=== PATIENT | male | born 1955 | race Caucasian/White ===

== ENCOUNTER 2021-11-23 09:32 | Outpatient (REF) | payer BC, SELFPAY ==
[2021-11-23 09:48] LABS: MANUAL DIFF FLAG NO
[2021-11-23 09:57] LABS: Basophils Absolute Auto 0.1 X10*3/uL (0.0-0.2); Basophils Percent Auto 0.8 % (0-2); Eosinophils Absolute Auto 0.1 X10*3/uL (0.0-0.4); Eosinophils Percent Auto 1.9 % (0-4); Hematocrit 48.2 % (42.0-52.0); Hemoglobin 16.7 g/dl (14.0-18.0); Imm Gran Abs Auto 0.01 X10*3/uL (0.00-0.03); Imm Gran Pct Auto 0.2 % (0.0-0.4); Lymphocytes Absolute Auto 1.7 X10*3/uL (1.2-4.9); Lymphocytes Percent Auto 27.1 % (20-40); Mean Corpuscular HGB Conc 34.6 g/dl (31.0-36.0); Mean Corpuscular Hemoglobin 32.5 pg (27.0-33.0); Mean Corpuscular Volume 93.8 fL (80.0-98.0); Mean Platelet Volume 9.4 fL (9.4-12.4); Monocytes Absolute Auto 0.6 X10*3/uL (0.1-1.2); Neutrophils Absolute Auto 3.7 x10*3/uL (2.0-8.3); Platelet Count 292 X10*3/uL (160-400); Red Blood Count 5.14 X10*6/uL (4.60-5.80); White Blood Count 6.2 X10*3/uL (4.8-10.8)
[2021-11-23 10:31] LABS: Anion Gap 9 (12-20); Blood Urea Nitrogen 13 mg/dL (9-16); Calcium 9.7 mg/dL (8.4-10.2); Carbon Dioxide 29 mmol/L (22-29); Chloride 108 mmol/L (96-108); Cholesterol 194 mg/dL; Estimated Glomerular Filt Rate > 60; Glucose Fasting 102 mg/dL (60-99); HDL Cholesterol 32 mg/dL; LDL Cholesterol Calculated 136 mg/dl; Potassium 4.7 mmol/L (3.3-5.1); Sodium 141 mmol/L (135-145); Triglycerides 132 mg/dL
[2021-11-23 10:42] LABS: Prostate Specific Antigen Scr 0.31 ng/mL (<0.05-4.0)
== END 2021-11-23 09:33 | disposition home or self-care (01) ==
LOC: HO.LAB 09:32
PROVIDERS: PCP Nurse Practitioner Family; Visit Provider Nurse Practitioner Family
DX: Z12.5 Encounter for screening for malignant neoplasm of prostate (principal); E55.9 Vitamin D deficiency, unspecified; Z76.89 Persons encountering health services in other specified circumstances
CPT/HCPCS: 36415; 80048; 80061; 82306; 84153; 85025

== ENCOUNTER 2022-01-11 08:48 | Day surgery (SDC) | payer BC, SELFPAY ==
[2022-01-01 13:19] VITALS: BMI 32.2
--- NOTE | 2022-01-07 12:48 | MHC.SHP ---
Pre-Procedural Eval Section A Date of Service: 01/07/22 The patient is an INPATIENT: No Changes since office visit: No Cold of Flu in the past 2 weeks, No New Medical Problems, No Changes in Medication and No Patient answered all questions The History & Physical has been completed within 30 days and I have reviewed it.: Yes Section B Chief Complaint: cataract Allergies: Allergies Allergy/AdvReac Type Severity Reaction Status Date / Time latex Allergy Intermediate Rash Verified 01/01/22 13:21 Plan Diagnosis/Plan: Unchanged I have reviewed the history and physical and performed a pertinent physical examination on my patient. No changes have occurred unless specified.
--- NOTE | 2022-01-07 13:47 | HO.ANESPROP2 ---
Documented by User: Cintia Fields NP 01/07/22 13:47 HPI - Anesthesia Eval Consult details Narrative: 66yo M for Left Cataract Extraction IOL Insertion PCP cleared No previous cataract on record PMFSH Active Problems Active Problems: All Active Problems (Updated 01/01/22 @ 13:17 by Lillian Santiago RN) Ingrowing nail with infection (Acute) Encounter to establish care (Acute ~11/16/21) Vitamin D deficiency (Acute) Hypercholesterolemia (Acute) Erectile dysfunction (Acute) Preoperative clearance (Acute) Cataract (Acute) Obesity (BMI 30.0-34.9) (Acute) Past Medical History Medical History COVID-19 vaccine series completed Patient denies medical problems Surgical History Surgical History H/O colonoscopy History of knee surgery Social History Social History (Updated 01/01/22 @ 13:18 by Lillian Santiago RN) Household Members Other:: [facility] Are you a primary medicare interviewer to a significant other at home: No Do you presently have visiting nurse or other home services: No Alcohol intake: current Alcohol intake frequency: 0-2 drinks per day Alcohol type: beer and wine Patient Tobacco Use Status: Former Tobacco user Quit Date: Tobacco use type: Cigarette e-Cigarette/Vaping Use: Never Used Second Hand Smoke Exposure: No Use of substances other than those prescribed or required for medical reasons: No Have you been hit, kicked, punched, or otherwise hurt by someone within the past year? 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 Cognitive needs: No Hearing needs: No Vision needs: Yes (Glasses) Meds Allergies Allergy/AdvReac Type Severity Reaction Status Date / Time latex Allergy Intermediate Rash Verified 01/11/22 09:21 Exam Exam Date and Time: January 07, 2022 1347 Height,Weight and Vital Signs: Height 5 ft 8 in Weight 96.162 kg Assessment and Plan Assessment Anesthesia Assessment: Chart Reviewed Documented by User: Ana Canela MD 01/11/22 09:32 [facility] Past Medical History Medical History COVID-19 vaccine series completed Patient denies medical problems Family History Family history of problems with anesthesia: No Surgical History Surgical History H/O colonoscopy History of knee surgery History of Problems with Anesthesia: No Social History Social History (Updated 01/01/22 @ 13:18 by Lillian Santiago RN) Household Members Other:: son Housing: [facility] Are you a primary medicare interviewer to a significant other at home: No Do you presently have visiting nurse or other home services: No Alcohol intake: current Alcohol intake frequency: 0-2 drinks per day Alcohol type: beer and wine Patient Tobacco Use Status: Former Tobacco user Quit Date: Tobacco use type: Cigarette e-Cigarette/Vaping Use: Never Used Second Hand Smoke Exposure: No Use of substances other than those prescribed or required for medical reasons: No Have you been hit, kicked, punched, or otherwise hurt by someone within the past year? 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 Cognitive needs: No Hearing needs: No Vision needs: Yes (Glasses) Meds Allergies Allergy/AdvReac Type Severity Reaction Status Date / Time latex Allergy Intermediate Rash Verified 01/11/22 09:21 Exam Airway Mallampati Class: II (Cap lateral) TM Dist: >3cm Neck ROM: Full Heart: rrr Lungs: cta Assessment and Plan Assessment Anesthesia Assessment: Anesthesia Plan Discussed and Chart Reviewed Final Anesthetic Review Family History of Problems with Anesthesia: No History of Problems with Anesthesia: No NPO: Yes ASA Class: II Final Preanesthetic Review: No Changes in Pt Med Stat, Meds/Allgs Chart Reviewed and Consent Obtained/Reviewed Patient Risk: Intermediate Procedure Risk: Intermediate Anesthetic Plan Anesthetic Plan: MAC: Disposition: Standard PACU
[2022-01-11 09:22] VITALS: BP 148/99; PULSE 75; RESP 16; TEMP 36.8; O2SAT 96
[2022-01-11] MEDS: Tetracaine HCl/PF 0.5% Oph Sol 4 ML DROPS 1 DROP EYE-LEFT (09:24)
[2022-01-11] MEDS: Tropicamide 1 % Ophth Sol 3 ML BTL 1 DROP EYE-LEFT ×3 (09:27→09:41)
[2022-01-11] MEDS: Lactated Ringers 500 ML 50 ML IV (09:29)
[2022-01-11] MEDS: Phenylephrine HCL 2.5% Oph SoL 2 ML BOTTLE 1 DROP EYE-LEFT ×3 (09:33→09:44)
--- NOTE | 2022-01-11 10:33 | HO.PNOPHT ---
Ophthalmology Procedure Procedure Date of Service: 01/11/22 Ophthalmology Viscoelastic: Healra Wisemant Dual Pack Pro Ophthalmology Lenses: TECNIS [id number] (14.5) Procedure Notes: PREOPERATIVE DIAGNOSIS: Decreased visual acuity left eye secondary to cataract POSTOPERATIVE DIAGNOSIS: Same PROCEDURE: Left cataract extraction with intraocular lens insertion SURGEON: Rodger Thornton M.D. ANESTHESIA: Topical/MAC ESTIMATED BLOOD LOSS: None COMPLICATIONS: None After obtaining informed consent, the patient was brought to the operation room suite and placed in the supine position. After adequate sedation per anesthesia, topical drops of Tetracaine were given to the left eye. The eye was then prepped and draped in the usual sterile fashion. The operating room microscope was then positioned over the operative eye and a lid speculum placed. A paracentesis was created. Viscoelastic was then instilled into the anterior chamber. A three plane incision was then created temporally, utilizing a 2.85 mm keratome. Capsulotomy forceps were then utilized to create a circular tear capsulotomy. Hydrodissection and hydrodelineation were carried out until adequate mobilization of the nucleus occurred. Phacoemulsification was then utilized to remove the dense central nucleus followed by removal of the cortical material utilizing the automated aspiration irrigation unit. Viscoat elastic was instilled into the posterior capsular bag followed by placement of a posterior chamber intraocular lens without difficulty. The residual Viscoat elastic was then removed utilizing the automated IA machine. The wound was check and found to be watertight. The patient tolerated the procedure well and the lid speculum was removed. Intracameral injection of Vigamox 0.1 mL followed by a subtenon injection of Kenalog-40 0.2 mL were administered. The patient will be seen in the a.m.
[2022-01-11 10:55] VITALS: BP 128/85; PULSE 71; RESP 16; TEMP 36.8; O2SAT 96
== END 2022-01-11 11:09 | disposition home or self-care (01) ==
PROVIDERS: PCP Nurse Practitioner Family; Visit Provider Ophthalmology
PROC: (CPT 66985; principal; 2022-01-11 10:50)
DX: H25.12 Age-related nuclear cataract, left eye (principal); H54.7 Unspecified visual loss; E66.9 Obesity, unspecified; Z68.32 Body mass index [BMI] 32.0-32.9, adult; Z79.899 Other long term (current) drug therapy; Z91.040 Latex allergy status; Z87.891 Personal history of nicotine dependence
CPT/HCPCS: 66984; J2250; J3010; J3300; V2632

== ENCOUNTER 2022-01-25 06:17 | Day surgery (SDC) | payer BC, SELFPAY ==
[2022-01-01 13:22] VITALS: BMI 32.2
--- NOTE | 2022-01-21 12:41 | MHC.SHP ---
Pre-Procedural Eval Section A Date of Service: 01/21/22 The patient is an INPATIENT: No Changes since office visit: No Cold of Flu in the past 2 weeks, No New Medical Problems, No Changes in Medication and No Patient answered all questions The History & Physical has been completed within 30 days and I have reviewed it.: Yes Section B Chief Complaint: cataract Allergies: Allergies Allergy/AdvReac Type Severity Reaction Status Date / Time latex Allergy Intermediate Rash Verified 01/11/22 09:21 Plan Diagnosis/Plan: Unchanged I have reviewed the history and physical and performed a pertinent physical examination on my patient. No changes have occurred unless specified.
--- NOTE | 2022-01-22 08:56 | P.CONAN_ITS ---
Documented by User: Cintia Fields NP 01/22/22 08:58 HPI - Anesthesia Eval Consult details Narrative: 66yo M for Right Cataract Multifocal with IOL Insertion PCP cleared Left eye 01/11/22 with MAC: Fent 50, Midaz 2 PMFSH Active Problems Active Problems: All Active Problems (Updated 01/01/22 @ 13:17 by Lillian Santiago RN) Ingrowing nail with infection (Acute) Encounter to establish care (Acute ~11/16/21) Vitamin D deficiency (Acute) Hypercholesterolemia (Acute) Erectile dysfunction (Acute) Preoperative clearance (Acute) Cataract (Acute) Obesity (BMI 30.0-34.9) (Acute) Past Medical History Medical History COVID-19 vaccine series completed Patient denies medical problems Family History Family history of problems with anesthesia: No Surgical History Surgical History H/O colonoscopy History of knee surgery History of Problems with Anesthesia: No Social History Social History (Updated 01/01/22 @ 13:18 by Lillian Santiago RN) Household Members Other:: [facility] Are you a primary acute care registered nurse to a significant other at home: No Do you presently have visiting nurse or other home services: No Alcohol intake: current Alcohol intake frequency: 0-2 drinks per day Alcohol t ype: beer and wine Patient Tobacco Use Status: Former Tobacco user Quit Date: Tobacco use type: Cigarette e-Cigarette/Vaping Use: Never Used Second Hand Smoke Exposure: No Use of substances other than those prescribed or required for medical reasons: No Have you been hit, kicked, punched, or otherwise hurt by someone within the past year? 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 Cognitive needs: No Hearing needs: No Vision needs: Yes (Glasses) Meds Allergies Allergy/AdvReac Type Severity Reaction Status Date / Time latex Allergy Intermediate Rash Verified 01/11/22 09:21 Exam Exam Date and Time: January 22, 2022 0856 Height,Weight and Vital Signs: Height 5 ft 8 in Weight 96.162 kg Assessment and Plan Assessment Anesthesia Assessment: Chart Reviewed Final Anesthetic Review Family History of Problems with Anesthesia: No History of Problems with Anesthesia: No Documented by User: Jacinto Graves MD 01/25/22 07:21 [facility] Past Medical History Medical History COVID-19 vaccine series completed Patient denies medical problems Surgical History Surgical History H/O colonoscopy History of knee surgery Social History Social History (Updated 01/01/22 @ 13:18 by Lillian Santiago RN) Household Members Other:: son Housing: Condominium Are you a primary acute care registered nurse to a significant other at home: No Do you presently have visiting nurse or other home services: No Alcohol intake: current Alcohol intake frequency: 0-2 drinks per day Alcohol type: beer and wine Patient Tobacco Use Status: Former Tobacco user Quit Date: Tobacco use type: Cigarette e-Cigarette/Vaping Use: Never Used Second Hand Smoke Exposure: No Use of substances other than those prescribed or required for medical reasons: No Have you been hit, kicked, punched, or otherwise hurt by someone within the past year? 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 Cognitive needs: No Hearing needs: No Vision needs: Yes (Glasses) Meds Allergies Allergy/AdvReac Type Severity Reaction Status Date / Time latex Allergy Intermediate Rash Verified 01/11/22 09:21 Exam Airway Mallampati Class: II TM Dist: >3cm Neck ROM: Full Loose/Missing/Broken Teeth: No Heart: rrr+[id number] Lungs: cta b/l Assessment and Plan Assessment Anesthesia Assessment: Anesthesia Plan Discussed Final Anesthetic Review NPO: Yes ASA Class: III Final Preanesthetic Review: No Changes in Pt Med Stat, Meds/Allgs Chart Reviewed, Consent Obtained/Reviewed and Anes Risks/Benef Reviewed Patient Risk: Intermediate Procedure Risk: Low Assessment/Block/Sedation in SS: Assess/Block/Sedation-SS Anesthetic Plan Anesthetic Plan: MAC: and Agree w/ Assess. and Plan Disposition: Standard PACU
[2022-01-25 06:56] VITALS: BP 126/81; PULSE 71; RESP 18; TEMP 36.6; O2SAT 96
[2022-01-25] MEDS: Lactated Ringers 500 ML 50 ML IV (07:02)
[2022-01-25] MEDS: Tetracaine HCl/PF 0.5% Oph Sol 4 ML DROPS 1 DROP EYE-RIGHT (07:03)
[2022-01-25] MEDS: Tropicamide 1 % Ophth Sol 3 ML BTL 1 DROP EYE-RIGHT ×3 (07:03→07:11)
[2022-01-25] MEDS: Phenylephrine HCL 2.5% Oph SoL 2 ML BOTTLE 1 DROP EYE-RIGHT ×3 (07:04→07:11)
--- NOTE | 2022-01-25 08:50 | HO.PNOPHT ---
Ophthalmology Procedure Procedure Date of Service: 01/25/22 Ophthalmology Viscoelastic: Healra Duet Dual Pack Pro Ophthalmology Lenses: TECNIS [id number] (14.5) Procedure Notes: PREOPERATIVE DIAGNOSIS: Decreased visual acuity right eye secondary to cataract POSTOPERATIVE DIAGNOSIS: Same PROCEDURE: Right cataract extraction with intraocular lens insertion SURGEON: Rodger Thornton M.D. ANESTHESIA: Topical/MAC ESTIMATED BLOOD LOSS: None COMPLICATIONS: None After obtaining informed consent, the patient was brought to the operating room suite and placed in the supine position. After adequate sedation per anesthesia, topical drops of Tetracaine were given to the right eye. The eye was then prepped and draped in the usual sterile fashion. The operating room microscope was then positioned over the operative eye and a lid speculum placed. A paracentesis was created. Viscoelastic was then instilled into the anterior chamber. A three plane incision was then created temporally, utilizing a 2.85 mm keratome. Capsulotomy forceps were then utilized to create a circular tear capsulotomy. Hydrodissection and hydrodelineation were carried out until adequate mobilization of the nucleus occurred. Phacoemulsification was then utilized to remove the dense central nucleus followed by removal of the cortical material utilizing the automated aspiration irrigation unit. Viscoelastic was instilled into the posterior capsular bag followed by placement of a posterior chamber intraocular lens without difficulty. The residual Viscoelastic was then removed utilizing the automated IA machine. The wound was checked and found to be watertight. The patient tolerated the procedure well and the lid speculum was removed. Intracameral injection of Vigamox 0.1 mL followed by a subtenon injection of Kenalog-40 0.2 mL were administered. The patient will be seen in the a.m.
[2022-01-25 09:19] VITALS: BP 137/96; PULSE 75; RESP 16; TEMP 36.2; O2SAT 97
== END 2022-01-25 09:21 | disposition home or self-care (01) ==
PROVIDERS: PCP Nurse Practitioner Family; Visit Provider Ophthalmology
PROC: (CPT 66985; principal; 2022-01-25 09:00)
DX: H25.11 Age-related nuclear cataract, right eye (principal); H54.7 Unspecified visual loss; Z91.040 Latex allergy status; Z87.891 Personal history of nicotine dependence
CPT/HCPCS: 66984; J2250; J3300; V2632

== ENCOUNTER 2023-07-11 12:16 | Outpatient (AMB) | payer BC, SELFPAY ==
[2023-07-11 12:32] VITALS: BP 130/82; PULSE 73; O2SAT 97; BMI 30.6
--- NOTE | 2023-07-11 12:32 | A.OFFPC_ITS ---
Vital Signs 07/11/23 12:32 Height 5 ft 8 in Weight 91.172 kg BMI 30.6 BP 130/82 Blood Pressure Location Lt brachial Position Sitting Pulse 73 Pulse Source Pulse Oximeter Pulse Oximetry (%) 97 Oxygen Delivery Method Room Air Intake Visit Reasons: PHY Allergies latex Allergy (Intermediate, Verified 07/11/23 12:33) Rash Penicillins Adverse Reaction (Intermediate, Verified 07/11/23 12:33) Rash Medication List - Last Reconciled 07/11/23 by Zack Allison MD cholecalciferol (vitamin D3) 50 mcg PO DAILY multivitamin 1 tab PO DAILY Tobacco use date assessed: 07/11/23 Fall risk assessment: No Falls in past year Last assessed Fall Risk: 07/11/23 Dental Screening Dental Screen Date: 07/11/23 Did you have a dental visit in the last 12 months?: Yes Did you have a dental problem in the last 6 months where you did not have access to dental care?: No Was dental information given to patient?: Patient has dentist HPI GEORGE HPI Details 68-year-old obese male with hypercholesterolemia, impaired glucose tolerance vitamin-D deficiency and right inguinal hernia last seen in September 2022 and advised blood work as well as colon cancer screening referral. Patient is seen here for physical exam- colon test will be seen soon Dr. Ortega. agri agnes - hearing test L weaker than R. PFSH Medical History (Updated 07/11/23 @ 12:33 by Zack Allison MD) Allergic dermatitis due to poison tram Cataract COVID-19 vaccine series completed Encounter to establish care (~11/16/21) Ingrowing nail with infection Patient denies medical problems Surgical History (Updated 07/11/23 @ 12:50 by Zack Allison MD) H/O colonoscopy History of cataract surgery History of knee surgery Hx of tonsillectomy Family History (Updated 09/20/22 @ 10:41 by Zack Allison MD) Father FH: CABG (coronary artery bypass surgery) Social History (Updated 07/11/23 @ 12:42 by Zack Allison MD) Household Members Other:: son Housing: Condominium Are you a primary career development consultant to a significant other at home: No Do you presently have visiting nurse or other home services: No Alcohol intake: current Alcohol intake frequency: 0-2 drinks per day Alcohol type: beer and wine Patient Tobacco Use Status: Former Tobacco user Quit Date: Tobacco use type: Cigarette Years Smoked: 1979 quit e-Cigarette/Vaping Use: Never Used Second Hand Smoke Exposure: No service: No Current occupational status: employed 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 1. Little interest or pleasure in doing things: not at all 2. Feeling down, depressed, or hopeless: not at all 3. Trouble falling or staying asleep, or sleeping too much: not at all 4. Feeling tired or having little energy: not at all 5. Poor appetite or overeating: not at all 6. Feeling bad about yourself - or that you are a failure or have let yourself or your family down: not at all 7. Trouble concentrating on things, such as reading the newspaper or watching television: not at all 8. Moving or speaking so slowly that other people could have noticed. Or the opposite - being so fidgety or restless that you have been moving around a lot more than usual: not at all 9. Thoughts that you would be better off or of hurting yourself in some way: not at all Total score: 0 Depression Screening Interpretation: Negative Source: Developed by Drs. Eloy Wesley, Елена Wright, Fritz Martinez and colleagues, with an educational antolin from [employer]. Thrive Questionnaire Date Thrive assessed: 07/11/23 I am a: Patient What is your living situation today?: I have a steady place to live Within the past 12 months, did the food you bought not last and you didn't have the money to get more?: I choose not to answer this question Within the past 12 months, did you worry whether your food would run out before you got money to buy more?: I choose not to answer this question Do you have trouble paying for medicines?: No Do you have trouble getting transportation to medical appointments?: No Do you have trouble paying your heating and electricity bill?: No Do you have trouble taking care of your child, family member or friend?: No Do you have trouble with day-to-day activities such as bathing, preparing meals, shopping, managing finances, etc.?: No Are you currently unemployed and looking for a job?: No Are you interested in more education?: No Currently or been in a relationship where the following occur: no concerns reported AUDIT C Alcohol Use Questionnaire (AUDIT-C) 1. How often do you have a drink containing alcohol?: Monthly or less 2. How many drinks containing alcohol do you have on a typical day when you are drinking?: 1 or 2 3. How often do you have six or more drinks on one occasion?: Never Total Score: 1 Score Reviewed/Action Taken: No RENÉE-7 AMB Questionnaire RENÉE-7 Date RENÉE - 7 assessed: 07/11/23 Feeling nervous, anxious, or on edge: 0 = Not at all Not being able to stop or control worryin = Not at all Worrying too much about different things: 0 = Not at all Trouble relaxin = Not at all Being so restless that it is hard to sit still: 0 = Not at all Becoming easily annoyed or irritable: 0 = Not at all Feeling afraid as if something awful might happen: 0 = Not at all Total RENÉE-7 score (0-4 normal; 5-9 mild; 10-14 moderate; 15-21 severe): 0 Source: Developed by Drs. Eloy Wesley, Елена Wright, Fritz Martinez and colleagues, with an educational antolin from [employer]. Review of Systems Const Denies poor appetite and Denies weakness Eyes Denies no additional complaints ENT Reports Normal hearing present, Denies dizziness, Denies nasal congestion, Denies tinnitus and Denies sore throat Card Denies chest pain, Denies syncope, Denies rapid heart rate and Denies dyspnea Resp Denies cough and Denies dyspnea GI Denies change in stool character, Reports constipation, Denies diarrhea, Denies nausea and Denies vomiting Denies dysuria and Denies urinary frequency Neuro Reports Normal hearing present, Denies confusion, Denies dizziness, Denies syncope and Denies weakness Psych Denies confusion Physical exam (Primary Care) Vital Signs: Last Vital Signs Pulse 73 07/11/23 12:32 BP 130/82 07/11/23 12:32 Pulse Ox 97 07/11/23 12:32 Oxygen Delivery Method Room Air 07/11/23 12:32 BMI result Body Mass Index 30.6 Tobacco/Smoking Status: Tobacco use Status Tobacco use date assessed 07/11/23 07/11/23 12:34 Patient Tobacco Use Status Former Tobacco user 07/11/23 12:42 Tobacco use type Cigarette 07/11/23 12:42 e-Cigarette/Vaping Use Never Used 07/11/23 12:42 PHQ-9: PHQ-9 Score PHQ-9: Total score 0 07/11/23 12:34 Depression Screening Interpretation: Negative Thrive Assessment: Date of Thrive Assessment Date Thrive assessed 07/11/23 07/11/23 12:34 Currently or been in a relationship where the following occur: no concerns reported Const General: No confusion Orientation/consciousness: No confusion HENMT Head: Yes normocephalic Ears: external ears normal and TM's normal bilaterally Face and sinus: Yes normal facial exam Mouth: moist mucous membranes Throat: Yes tonsils normal Eyes Conjunctivae: conjunctivae normal Pupils: Equal, round and reactive pupils present and Pupil accommodation reflex normal Direct Ophthalmoscopy: normal light reflex Neck Neck: No lymphadenopathy Thyroid: Thyroid normal Chest Chest palpation & inspection: normal inspection of the chest Resp Effort & Inspection: normal respiratory effort and no audible wheezes Auscultation: clear to auscultation bilaterally, no crackles, no wheezes and lung sounds not diminished Cardio Rate: regular rate Rhythm: regular rhythm Peripheral pulses: radial pulses present and dorsalis pedis present GI Palpation (GI): no masses Auscultation: normal bowel sounds and normoactive bowel sounds Rectal Exam - Male: Yes deferred Skin General skin exam: no rashes or lesions noted Rashes: no rashes Neuro General: No confusion Cranial nerves: Yes Equal, round and reactive pupils present and Yes Normal hearing present Cognition (Neuro): normal cognition Gait exam (Neuro): Normal gait present Motor exam (neuro): 5/5 motor strength present throughout Deep tendon reflexes (DTR's): Right brachioradialis reflex intensity grade: 2+, Left brachioradialis reflex intensity grade: 2+, Right patellar reflex intensity grade: 2+ and Left patellar reflex intensity grade: 2+ Extrem General: No edema Immunizations pneumoc 20-vikki conj-dip cr(PF) Performing Provider: Zack Allison MD Administered by: Vandana Santos CMA on 07/11/23 13:03 Dose Route Admin Location Lot Number Expiration Date NDC Manager Internship 0.5 mL IM Left Deltoid [id number] 07/15/24 [employer] VIS Given Date VIS Provided VIS Publication Date 07/11/23 Single Vaccine 21 Eligibility Eligibility Date Funding Source Not [facility] Eligible 07/11/23 Private Assessment and Plan Assessment & Plan (1) Annual physical exam: Code(s): Z00.00 - Encounter for general adult medical examination without abnormal findings (2) Obesity (BMI 30.0-34.9): Code(s): E66.9 - Obesity, unspecified Plan: Diet and exercise (3) Hypercholesterolemia: Code(s): E78.00 - Pure hypercholesterolemia, unspecified Plan: Avoid fried foods, chicken skin, eggs, butter margarine, pastries and meat. Be it pork or beef they have a lot of cholesterol reminded about the blood work LDL goal of less than 130 and triglyceride of less than 150 (4) Impaired glucose tolerance: Code(s): R73.02 - Impaired glucose tolerance (oral) Plan: Decrease the amount of carbohydrate intake, pasta, bread, rice and potatoes are all sugar and that is aside from all the sweet stuff, remember that fruits are good but they are Sweet also. (5) Colon cancer screening: Code(s): Z12.11 - Encounter for screening for malignant neoplasm of colon Plan: Reminded about colonoscopy (6) Right inguinal hernia: Code(s): K40.90 - Unilateral inguinal hernia, without obstruction or gangrene, not specified as recurrent Plan: Stable will continue to monitor Orders: Orders Pneumococcal 20 Immunization Today Z23 - Encounter for immunization Coding Level of Care Code Est Pt Prev Care >65y(48622) Diagnoses Annual physical exam Z00.00 Obesity (BMI 30.0-34.9) E66.9 Hypercholesterolemia E78.00 Impaired glucose tolerance R73.02 Colon cancer screening Z12.11 Right inguinal hernia K40.90 Additional Codes PHQ-9 - 77180 - PHQ-9 Billing: Y ([id number])
== END 2023-07-11 13:06 | disposition home or self-care (01) ==
PROVIDERS: PCP Internal Medicine; Visit Provider Internal Medicine
DX: Z00.00 Encounter for general adult medical examination without abnormal findings (principal); E66.9 Obesity, unspecified; E78.00 Pure hypercholesterolemia, unspecified; Z68.30 Body mass index [BMI] 30.0-30.9, adult; Z23 Encounter for immunization; R73.02 Impaired glucose tolerance (oral); K40.90 Unilateral inguinal hernia, without obstruction or gangrene, not specified as recurrent
CPT/HCPCS: 90471; 90677; 99397

== ENCOUNTER 2023-07-11 13:11 | Outpatient (REF) | payer BC, SELFPAY ==
[2023-07-11 13:24] LABS: MANUAL DIFF FLAG NO
[2023-07-11 13:38] LABS: Basophils Absolute Auto 0.1 X10*3/uL (0.0-0.2); Basophils Percent Auto 0.8 % (0-2); Eosinophils Absolute Auto 0.1 X10*3/uL (0.0-0.4); Eosinophils Percent Auto 1.5 % (0-4); Hematocrit 48.7 % (42.0-52.0); Hemoglobin 16.8 g/dl (14.0-18.0); Imm Gran Abs Auto 0.02 X10*3/uL (0.00-0.03); Imm Gran Pct Auto 0.3 % (0.0-0.4); Lymphocytes Absolute Auto 1.7 X10*3/uL (1.2-4.9); Lymphocytes Percent Auto 20.9 % (20-40); Mean Corpuscular HGB Conc 34.5 g/dl (31.0-36.0); Mean Corpuscular Hemoglobin 31.5 pg (27.0-33.0); Mean Corpuscular Volume 91.2 fL (80.0-98.0); Mean Platelet Volume 9.2 fL (9.4-12.4); Monocytes Absolute Auto 0.7 X10*3/uL (0.1-1.2); Monocytes Percent Auto 8.2 % (2-11); Neutrophils Absolute Auto 5.4 x10*3/uL (2.0-8.3); Neutrophils Percent Auto 68.3 % (45-73); Platelet Count 303 X10*3/uL (160-400); Red Blood Count 5.34 X10*6/uL (4.60-5.80); Red Cell Distribution Width 12.3 % (11.0-16.0); White Blood Count 7.9 X10*3/uL (4.8-10.8)
[2023-07-11 13:47] LABS: Estimated Average Glucose 97 mg/dL
[2023-07-11 14:20] LABS: Alanine Aminotransferase 18 U/L (0-40); Albumin Level 4.2 g/dL (3.5-5.0); Alkaline Phosphatase 63 U/L (39-117); Anion Gap 11 (12-20); Aspartate Amino Transferase 17 U/L (5-37); Blood Urea Nitrogen 14 mg/dL (9-16); Calcium 9.4 mg/dL (8.4-10.2); Carbon Dioxide 28 mmol/L (22-29); Chloride 107 mmol/L (96-108); Cholesterol 211 mg/dL (<200); Estimated Glomerular Filt Rate > 60; Glucose Random 95 mg/dL (60-115); HDL Cholesterol 33 mg/dL (>40); LDL Cholesterol Calculated 153 mg/dL (<100); Potassium 4.3 mmol/L (3.3-5.1); Sodium 142 mmol/L (135-145); Total Protein 7.1 g/dL (6.5-8.0); Triglycerides 127 mg/dL (<150)
[2023-07-11 14:36] LABS: Free T4 (Free Thyroxine) 0.82 ng/dL (0.71-1.85); Thyroid Stimulating Hormone 1.51 uIU/mL (0.32-4.0)
[2023-07-11 14:46] LABS: Folate 13.1 ng/mL (> or = 4.0); Prostate Specific Antigen Scr 0.31 ng/mL (<0.05-4.0); Vitamin B12 480 pg/mL (200-900)
== END 2023-07-11 13:12 | disposition home or self-care (01) ==
LOC: HO.LAB 13:11
PROVIDERS: PCP Internal Medicine; Visit Provider Internal Medicine
DX: E78.00 Pure hypercholesterolemia, unspecified (principal); R73.02 Impaired glucose tolerance (oral); Z12.5 Encounter for screening for malignant neoplasm of prostate
CPT/HCPCS: 36415; 80053; 80061; 82607; 82746; 83036; 84153; 84439; 84443; 85025

== ENCOUNTER 2024-08-17 06:32 | Day surgery (SDC) | payer MEDICARE, SELFPAY ==
[2024-08-15 14:16] VITALS: BMI 31.6
--- NOTE | 2024-08-16 09:26 | HO.ANESPROP2 ---
Documented by User: Cintia Fields NP 08/16/24 09:26 HPI - Anesthesia Eval Consult details Narrative: 69yo M for Upper Endoscopy and Colonoscopy PMF Active Problems Active Problems: All Active Problems Annual physical exam (Acute) Right inguinal hernia (Acute) Colon cancer screening (Acute) Impaired glucose tolerance (Acute) Obesity (BMI 30.0-34.9) (Acute) Erectile dysfunction (Acute) Hypercholesterolemia (Acute) Vitamin D deficiency (Acute) Past Medical History Medical History (Updated 08/15/24 @ 14:13 by Mimi Serna RN) History of inguinal hernia Elevated blood sugar Hyperlipidemia Allergic dermatitis due to poison tram COVID-19 vaccine series completed Patient denies medical problems Cataract Encounter to establish care (~11/16/21) Ingrowing nail with infection Family History Family History (Updated 09/20/22 @ 10:41 by Zack Allison MD) Father FH: CABG (coronary artery bypass surgery) Family history of problems with anesthesia: No Surgical History Surgical History (Updated 07/11/23 @ 12:50 by Zack Allison MD) Hx of tonsillectomy History of cataract surgery H/O colonoscopy History of knee surgery History of Problems with Anesthesia: No Social History Social History (Updated 07/11/23 @ 12:42 by Zack Allsion MD) Household Members Other:: son Housing: Condominium Are you a primary rehab care assistant to a significant other at home: No Do you presently have visiting nurse or other home services: No Alcohol intake: current Alcohol intake frequency: 0-2 drinks per day Alcohol type: beer and wine Patient Tobacco Use Status: Former Tobacco user Tobacco use type: Cigarette Years Smoked: 1979 quit e-Cigarette/Vaping Use: Never Used Second Hand Smoke Exposure: No Use of substances other than those prescribed or required for medical reasons: No Are you DNR?: No Advance Directives: No Advance Directives Information Provided: Yes service: No Current occupational status: employed 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 Cognitive needs: No Hearing needs: No Vision needs: Yes (Glasses) Meds Allergies Allergy/AdvReac Type Severity Reaction Status Date / Time latex Allergy Intermediate Rash Verified 08/17/24 06:42 Penicillins AdvReac Intermediate Rash Verified 08/17/24 06:42 Home Medications ?Medication ?Instructions ?Recorded ?Confirmed ?Last Taken ?Type multivitamin 1 tab PO DAILY 07/11/23 08/17/24 Unknown History omeprazole 20 mg capsule,delayed 20 mg PO DAILY 08/17/24 08/17/24 Unknown History release Exam Height,Weight and Vital Signs: Height 5 ft 7.5 in Weight 92.986 kg Assessment and Plan Assessment Anesthesia Assessment: Chart Reviewed Final Anesthetic Review Family History of Problems with Anesthesia: No History of Problems with Anesthesia: No Documented by User: Jose Guadalupe Wilson MD 08/17/24 07:29 [facility] Past Medical History Medical History (Updated 08/15/24 @ 14:13 by Mimi Serna RN) History of inguinal hernia Elevated blood sugar Hyperlipidemia Allergic dermatitis due to poison tram COVID-19 vaccine series completed Patient denies medical problems Cataract Encounter to establish care (~11/16/21) Ingrowing nail with infection Family History Family History (Updated 09/20/22 @ 10:41 by Zack Allison MD) Father FH: CABG (coronary artery bypass surgery) Surgical History Surgical History (Updated 07/11/23 @ 12:50 by Zack Allison MD) Hx of tonsillectomy History of cataract surgery H/O colonoscopy History of knee surgery Social History Social History (Updated 07/11/23 @ 12:42 by Zack Allison MD) Household Members Other:: son Housing: Condominium Are you a primary rehab care assistant to a significant other at home: No Do you presently have visiting nurse or other home services: No Alcohol intake: current Alcohol intake frequency: 0-2 drinks per day Alcohol type: beer and wine Patient Tobacco Use Status: Former Tobacco user Tobacco use type: Cigarette Years Smoked: 1979 quit e-Cigarette/Vaping Use: Never Used Second Hand Smoke Exposure: No Use of substances other than those prescribed or required for medical reasons: No Are you DNR?: No Advance Directives: No Advance Directives Information Provided: Yes service: No Current occupational status: employed 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 Cognitive needs: No Hearing needs: No Vision needs: Yes (Glasses) Meds Allergies Allergy/AdvReac Type Severity Reaction Status Date / Time latex Allergy Intermediate Rash Verified 08/17/24 06:42 Penicillins AdvReac Intermediate Rash Verified 08/17/24 06:42 Home Medications ?Medication ?Instructions ?Recorded ?Confirmed ?Last Taken ?Type multivitamin 1 tab PO DAILY 07/11/23 08/17/24 Unknown History omeprazole 20 mg capsule,delayed 20 mg PO DAILY 08/17/24 08/17/24 Unknown History release Exam Airway Mallampati Class: III TM Dist: >3cm Neck ROM: Full Assessment and Plan Assessment Anesthesia Assessment: Anesthesia Plan Discussed Final Anesthetic Review NPO: Yes ASA Class: II Final Preanesthetic Review: No Changes in Pt Med Stat, Meds/Allgs Chart Reviewed, Consent Obtained/Reviewed and Anes Risks/Benef Reviewed Patient Risk: Low Procedure Risk: Low Anesthetic Plan Anesthetic Plan: TIVA Disposition: Standard PACU
[2024-08-17 06:42] VITALS: BMI 31.5
[2024-08-17 07:03] VITALS: BP 120/86; PULSE 69; RESP 16; TEMP 36.6; O2SAT 97
[2024-08-17] MEDS: Lactated Ringers 1,000 ML 100 ML IVCONT (07:04)
--- NOTE | 2024-08-17 07:44 | MHC.SHP ---
Pre-Procedural Eval Section A - 24 Hr Update-Section A only Date of Service: 08/17/24 Section B - Complete if H&P > 30 days Chief Complaint: Epigastric pain,screening Details of Present Illness: see H&P no changes Relevant Family History (Specify if Yes): No Relevant Social History: None Present Medications: see Short Stay Collaborative assessment Medical History: No relevant PMH History of Previous Operations: No relevant previous surgery Allergies: Allergies Allergy/AdvReac Type Severity Reaction Status Date / Time latex Allergy Intermediate Rash Verified 08/17/24 06:42 Penicillins AdvReac Intermediate Rash Verified 08/17/24 06:42 Review of Systems Sugical H&P ROS: Negative: Constitution, Cardiovascular, Respiratory, Neurological, Psychiatric, Hem-Onc, Allergic/Immunologic, Gastrointestinal, Genitourinary, Musculoskeletal, Integumentary, Endocrine and Eyes/Ears/Nose/Throat Exam Surgical H&P Exam: Normal: HEENT, Normal: Heart, Normal: Lungs, Normal: Extremities, Normal: Abdomen, Normal: Skin and Normal: Neurological Plan Diagnosis/Plan: Unchanged I have reviewed the history and physical and performed a pertinent physical examination on my patient. No changes have occurred unless specified. Time Spent With Patient Time: Total time managing care of this patient today ____ minutes.
[2024-08-17 08:31] VITALS: BP 103/70; PULSE 75; RESP 14; TEMP 36.2; O2SAT 97
[2024-08-17 08:46] VITALS: BP 110/78; PULSE 64; RESP 14; O2SAT 97
[2024-08-17 09:01] VITALS: BP 113/85; PULSE 75; RESP 16; TEMP 36.2; O2SAT 96
--- NOTE | 2024-08-17 09:13 | OP_ITS ---
DATE OF SERVICE: 08/17/2024 SURGEON: Yasmany Ortega MD INDICATIONS: 1. Gastroesophageal reflux disease. 2. Colon cancer screening. PREOPERATIVE DIAGNOSIS: POSTOPERATIVE DIAGNOSIS: PROCEDURE PERFORMED: Upper endoscopy with biopsy, colonoscopy to the terminal ileum. ESTIMATED BLOOD LOSS: COMPLICATIONS: ANESTHESIA: Monitored anesthesia care. ASSISTANTS: SPECIMENS: DESCRIPTION OF PROCEDURE: A history and physical was performed. The risks and benefits of the procedure were explained to the patient and informed consent was obtained. The patient was placed in the left lateral decubitus position. A digital rectal exam was performed prior to the colonoscopy. The Olympus video gastroscope was introduced into the esophagus, stomach, and duodenum. Examination was performed and the scope was removed. He was repositioned for colonoscopy. The Olympus pediatric video colonoscope was introduced into the rectum and advanced to the cecum. The cecum was identified by transillumination, palpation, and identification of ileocecal valve. Examination was performed and the scope was removed. He tolerated both procedures well and was returned to recovery area in stable condition. FINDINGS: Upper endoscopy, esophagus: The esophagus was normal. There was no esophagitis. Biopsies were obtained from the EG junction. Stomach: The stomach showed no evidence of masses, ulcers, or polyps. Antral biopsies were obtained. Duodenum: The bulb and 2nd portion were normal. Colonoscopy: The terminal ileum was examined and appeared normal. The visualized colonic mucosa was normal. The quality of the prep was good. No polyps were identified. There was mild sigmoid diverticulosis. Retroflexed examination showed small internal hemorrhoids. IMPRESSION: 1. Gastroesophageal reflux disease. 2. Normal colonoscopy. RECOMMENDATIONS: 1. Follow up the biopsy results. 2. Repeat colonoscopy is recommended in 10 years for average-risk individuals. This is optional after age 75. MD PARMJIT Lisa/CANDACEL / [id number]
== END 2024-08-17 09:30 | disposition home or self-care (01) ==
PROVIDERS: PCP Internal Medicine; Visit Provider Internal Medicine Gastroenterology
PROC: (CPT 43239; principal; 2024-08-17 07:30)
DX: K21.9 Gastro-esophageal reflux disease without esophagitis (principal); Z12.11 Encounter for screening for malignant neoplasm of colon; K57.30 Diverticulosis of large intestine without perforation or abscess without bleeding; K64.8 Other hemorrhoids; Z86.0101 Personal history of adenomatous and serrated colon polyps; E78.00 Pure hypercholesterolemia, unspecified
CPT/HCPCS: 43239; G0105; 88305; 88313; 88342; J2003; J2704

== ENCOUNTER 2025-01-18 10:56 | Outpatient (AMB) | payer MEDICARE, SELFPAY ==
--- NOTE | 2025-01-18 10:57 | MHC.PC.OV ---
Vital Signs 01/18/25 11:03 Height 5 ft 8 in Weight 205 lb BMI 31.2 BP 130/86 Pulse 72 Pulse Source Pulse Oximeter Temp 98.7 F Pulse Oximetry (%) 97 Oxygen Delivery Method Room Air Intake Visit Reasons: annual exam Avionics Supervisor Required: No Accompanied by: Self / Same As Patient Allergies latex Allergy (Intermediate, Verified 01/18/25 10:59) Rash Penicillins Adverse Reaction (Intermediate, Verified 01/18/25 10:59) Rash Medication List - Last Reconciled 01/18/25 by Zack Allison MD cholecalciferol (vitamin D3) 50 mcg PO DAILY omeprazole 20 mg PO DAILY Tobacco use date assessed: 01/18/25 Fall risk assessment: No Falls in past year Last assessed Fall Risk: 01/18/25 Dental Screening Dental Screen Date: 07/11/23 [facility] Medical History History of inguinal hernia Elevated blood sugar Hyperlipidemia Allergic dermatitis due to poison tram COVID-19 vaccine series completed Patient denies medical problems Cataract Encounter to establish care (~11/16/21) Ingrowing nail with infection Surgical History Hx of tonsillectomy History of cataract surgery H/O colonoscopy History of knee surgery Family History Father FH: CABG (coronary artery bypass surgery) Social History (Updated 01/18/25 @ 11:24 by Zack Allison MD) Household Members Other:: son Housing: Condominium Are you a primary hospice care sales consultant to a significant other at home: No Do you presently have visiting nurse or other home services: No Alcohol intake: current Alcohol intake frequency: 0-2 drinks per day Alcohol type: beer and wine Comment: 3x a week1 drink Patient Tobacco Use Status: Former Tobacco user Tobacco use type: Cigarette Years Smoked: 1979 quit e-Cigarette/Vaping Use: Never Used Second Hand Smoke Exposure: No service: No Current occupational status: employed 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 1. Little interest or pleasure in doing things: not at all 2. Feeling down, depressed, or hopeless: not at all 3. Trouble falling or staying asleep, or sleeping too much: not at all 4. Feeling tired or having little energy: not at all 5. Poor appetite or overeating: not at all 6. Feeling bad about yourself - or that you are a failure or have let yourself or your family down: not at all 7. Trouble concentrating on things, such as reading the newspaper or watching television: not at all 8. Moving or speaking so slowly that other people could have noticed. Or the opposite - being so fidgety or restless that you have been moving around a lot more than usual: not at all 9. Thoughts that you would be better off or of hurting yourself in some way: not at all Total score: 0 Source: Developed by Drs. Eloy Wesley, Елена Wright, Fritz Martinez and colleagues, with an educational antolin from [employer]. Thrive Questionnaire Date Thrive assessed: 01/18/25 I am a: Patient What is your living situation today?: I have a steady place to live Within the past 12 months, did the food you bought not last and you didn't have the money to get more?: Never true Within the past 12 months, did you worry whether your food would run out before you got money to buy more?: Never true Do you have trouble paying for medicines?: No Do you have trouble getting transportation to medical appointments?: No Do you have trouble paying your heating and electricity bill?: No Do you have trouble taking care of your child, family member or friend?: No Do you have trouble with day-to-day activities such as bathing, preparing meals, shopping, managing finances, etc.?: No Are you currently unemployed and looking for a job?: No Are you interested in more education?: No Please select the resources that you would like help with: None Currently or been in a relationship where the following occur: No concerns reported THRIVE Score: 0 AUDIT C Alcohol Use Questionnaire (AUDIT-C) 1. How often do you have a drink containing alcohol?: 2-3 times a week 2. How many drinks containing alcohol do you have on a typical day when you are drinking?: 1 or 2 3. How often do you have six or more drinks on one occasion?: Never Total Score: 3 Score Reviewed/Action Taken: No RENÉE-7 AMB Questionnaire RENÉE-7 Date RENÉE - 7 assessed: 01/18/25 Feeling nervous, anxious, or on edge: 0 = Not at all Not being able to stop or control worryin = Not at all Worrying too much about different things: 0 = Not at all Trouble relaxin = Not at all Being so restless that it is hard to sit still: 0 = Not at all Becoming easily annoyed or irritable: 0 = Not at all Feeling afraid as if something awful might happen: 0 = Not at all Total RENÉE-7 score (0-4 normal; 5-9 mild; 10-14 moderate; 15-21 severe): 0 Source: Developed by Drs. Eloy Wesley, Елена Wright, Fritz Martinez and colleagues, with an educational antolin from [employer]. Review of Systems Const Denies poor appetite and Denies weakness Eyes Denies no additional complaints ENT Reports Normal hearing present, Denies dizziness, Denies nasal congestion, Denies tinnitus and Denies sore throat Card Denies chest pain, Denies syncope, Denies rapid heart rate and Denies dyspnea Resp Denies cough and Denies dyspnea GI Denies change in stool character, Reports constipation, Denies diarrhea, Denies nausea and Denies vomiting Denies dysuria and Denies urinary frequency Neuro Reports Normal hearing present, Denies confusion, Denies dizziness, Denies syncope and Denies weakness Psych Denies confusion Physical exam (Primary Care) Vital Signs: Last Vital Signs Temp 98.7 F 01/18/25 11:03 Pulse 72 01/18/25 11:03 BP 130/86 01/18/25 11:03 Pulse Ox 97 01/18/25 11:03 Oxygen Delivery Method Room Air 01/18/25 11:03 BMI result Body Mass Index 31.2 Tobacco/Smoking Status: Tobacco use Status Tobacco use date assessed 01/18/25 01/18/25 11:00 Patient Tobacco Use Status Former Tobacco user 01/18/25 11:24 Tobacco use type Cigarette 01/18/25 11:24 e-Cigarette/Vaping Use Never Used 01/18/25 11:24 PHQ-9: PHQ-9 Score PHQ-9: Total score 0 01/18/25 11:15 Thrive Assessment: Date of Thrive Assessment Date Thrive assessed 01/18/25 01/18/25 11:00 Currently or been in a relationship where the following occur: No concerns reported Const General: No confusion Orientation/consciousness: No confusion HENMT Head: Yes normocephalic Ears: external ears normal and TM's normal bilaterally Face and sinus: Yes normal facial exam Mouth: moist mucous membranes Throat: Yes tonsils normal Eyes Conjunctivae: conjunctivae normal Pupils: Equal, round and reactive pupils present and Pupil accommodation reflex normal Direct Ophthalmoscopy: normal light reflex Neck Neck: No lymphadenopathy Thyroid: Thyroid normal Chest Chest palpation & inspection: normal inspection of the chest Resp Effort & Inspection: normal respiratory effort and no audible wheezes Auscultation: clear to auscultation bilaterally, no crackles, no wheezes and lung sounds not diminished Cardio Rate: regular rate Rhythm: regular rhythm Peripheral pulses: radial pulses present and dorsalis pedis present GI Other: colon test 08/2024 Palpation (GI): no masses Auscultation: normal bowel sounds and normoactive bowel sounds Rectal Exam - Male: Yes deferred Other: R inguinal hernia Skin General skin exam: no rashes or lesions noted Rashes: no rashes Neuro General: No confusion Cranial nerves: Yes Equal, round and reactive pupils present and Yes Normal hearing present Cognition (Neuro): normal cognition Gait exam (Neuro): Normal gait present Motor exam (neuro): 5/5 motor strength present throughout Deep tendon reflexes (DTR's): Right brachioradialis reflex intensity grade: 2+, Left brachioradialis reflex intensity grade: 2+, Right patellar reflex intensity grade: 2+ and Left patellar reflex intensity grade: 2+ Extrem General: No edema Results AMB Hemoglobin A1c AMB Hemoglobin A1c 5.2 % Last Edit by PRAMOD Gaines on 01/18/25 11:14 Results Reviewed Results Reviewed: Laboratory Last Values Hgb A1c (Clinic) 5.2 % (4.0-6.0) 01/18/25 11:01 Coding Level of Care Code Est Pt Prev Care >65y(39125) Diagnoses Annual physical exam Z00.00 Obesity (BMI 30.0-34.9) E66.9 Hypercholesterolemia E78.00 Impaired glucose tolerance R73.02 GERD (gastroesophageal reflux disease) K21.9 Right inguinal hernia K40.90 Assessment & Plan Assessment & Plan (1) Annual physical exam: Code(s): Z00.00 - Encounter for general adult medical examination without abnormal findings Category: Medical Plan: Patient is advised to eat healthy, keep well hydrated, keep active and have adequate sleep. (2) Obesity (BMI 30.0-34.9): Code(s): E66.9 - Obesity, unspecified Category: Medical Plan: Diet and exercise (3) Hypercholesterolemia: Code(s): E78.00 - Pure hypercholesterolemia, unspecified Category: Medical Plan: Avoid fried foods, chicken skin, eggs, butter margarine, pastries and meat. Be it pork or beef they have a lot of cholesterol LDL goal of less than 130 and triglyceride of less than 150 (4) Impaired glucose tolerance: Code(s): R73.02 - Impaired glucose tolerance (oral) Category: Medical Plan: Decrease the amount of carbohydrate intake, pasta, bread, rice and potatoes are all sugar and that is aside from all the sweet stuff, remember that fruits are good but they are Sweet also. (5) GERD (gastroesophageal reflux disease): Code(s): K21.9 - Gastro-esophageal reflux disease without esophagitis Category: Medical Plan: Avoid the foods that causes that usually spicy foods, tomato products, juices, coffee, soda and foods that your sensitive to. After eating do not lie down, allow 3-4 hours before in lie down. And keep the head of bed above 30 degrees to avoid the acid from going up. On omeprazole (6) Right inguinal hernia: Code(s): K40.90 - Unilateral inguinal hernia, without obstruction or gangrene, not specified as recurrent Category: Medical Plan: avoid heavy lifting Plan History of Present Illness The patient is a 69-year-old male presenting for a physical examination and management of hypercholesterolemia and GERD. The patient?s hypercholesterolemia revealed elevated cholesterol levels in the most recent lab work, with management goals discussed but not detailed. Recently, he manages GERD on an as-needed basis with omeprazole, reporting good control of symptoms. A significant historical note includes a resolved Helicobacter pylori infection following treatment and an endoscopy conducted the previous year, which also showed minimal chronic inactive gastritis. His medical course involved an episode of COVID-19 last October, during which he experienced musculoskeletal back pain that has persisted to date. The pain, located near the right shoulder blade, comes and goes, often worsened after long drives, part of his routine work duties. Health Maintenance - Patient has advised on cholesterol management goals: LDL goal less than 130 mg/dL and triglyceride less than 150 mg/dL. - Colonoscopy completed on August 28, 2024. - Vitamin D supplementation discussed, and prescription renewal initiated. - Reminded of importance of regular physical activity, especially with work involving prolonged sitting. - COVID-19 infection reported recently, with education on monitoring potential long-term symptoms. - Discussion on flu vaccination with plan to consider later in the year. - Tetanus and shingles vaccinations discussed, with shingles vaccine recommended but noted as not mandatory. 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 - Exercises by walking, although frequency reduced during colder months. - Consumes one beer approximately three times a week with meals. - Previously a smoker but no current tobacco or illicit drug use. Review of Systems Physical Exam General: Cooperative, healthy appearing, comfortable, no acute distress and well developed Orientation: Patient oriented x3 Limitations: No limitations Head: Normal to inspection Ears: Hearing grossly normal bilaterally, no pain or wax noted Nose: Normal external nose present Face and sinus: Normal facial exam Eyes: Appearance normal, both eyes and all related structures Neck: Normal visual inspection and Yes full ROM Respiratory: Normal respiratory effort and able to speak in complete sentences. Clear to auscultation bilaterally Cardiovascular: Regular rate and rhythm. Normal S1 and S2 GI: Normal to inspection. Soft to palpation and nontender Skin: No rashes or lesions noted Neuro: Patient oriented x3 Extremities: Normal to inspection Results Plan Patient was informed and verbally consented to the use of an ambient scribe for clinic note documentation during this visit. Discussion Notes I explained to the patient the importance of adhering to his cholesterol management goals and employing lifestyle modifications, including dietary changes and increased physical activity. There was a detailed discussion on the intermittent musculoskeletal pain, with reassurances given concerning the low probability of significant underlying visceral issues. We discussed performing routine blood work to monitor and potentially tailor his hypercholesterolemia and glucose management. I encouraged him to maintain regular physical activity to prevent thromboembolic risks associated with prolonged sitting. The options concerning immunizations and their scheduling were also reviewed. Patient Instructions - Continue taking omeprazole only when experiencing GERD symptoms. - Follow a cholesterol-conscious diet and increase physical activity. - Ensure regular breaks during prolonged sitting periods for work. - Take vitamin D supplements as prescribed. - Schedule follow-up after blood test results are available. - Consider flu vaccine in August and speak to a pharmacist about the shingles vaccine. - Notify healthcare provider if experiencing worsening or persistent symptoms. Orders: Orders Thyroid Stimulating Hormone Today E78.00 - Pure hypercholesterolemia, unspecified Prostate Specific Antigen Scr Today E78.00 - Pure hypercholesterolemia, unspecified UA CC w/rflx Micro + Cult Today K40.90 - Unilateral inguinal hernia, without obstruction or gangrene, not specified as recurrent, R30.0 - Dysuria Rubeola IgG (Measles) Today K40.90 - Unilateral inguinal hernia, without obstruction or gangrene, not specified as recurrent, Z02.0 - Encounter for examination for admission to educational institution Rubella IgG Antibody Today K40.90 - Unilateral inguinal hernia, without obstruction or gangrene, not specified as recurrent, Z02.0 - Encounter for examination for admission to [facility] Mumps Virus IgG Antibody Today K40.90 - Unilateral inguinal hernia, without obstruction or gangrene, not specified as recurrent, Z02.0 - Encounter for examination for admission to [facility] AMB Hemoglobin A1c Today R73.02 - Impaired glucose tolerance (oral) Complete Blood Count Auto Diff Today E78.00 - Pure hypercholesterolemia, unspecified Comprehensive Met. Panel Today E78.00 - Pure hypercholesterolemia, unspecified Free T4 (Free Thyroxine) Today E78.00 - Pure hypercholesterolemia, unspecified Lipid Panel Today E78.00 - Pure hypercholesterolemia, unspecified Vitamin B12 and Folate Today E78.00 - Pure hypercholesterolemia, unspecified Medications: Refilled cholecalciferol (vitamin D3) 50 mcg PO DAILY 90 tabs 2RF E55.9 - Vitamin D deficiency, unspecified
[2025-01-18 11:03] VITALS: BP 130/86; PULSE 72; TEMP 37.1; O2SAT 97; BMI 31.2
--- OUTSIDE RECORDS SUMMARY | 2025-01-18 12:37 | XMS_ITS ---
Author Organization [facility] Address [address] [place] [id number] Care Team Providers Care Cake Winder Name Role Phone Zack Allison MD Primary Care Provider Yasmany Ott Jr REASON FOR VISIT pathology/left vm for pt to call back Medications Medication SIG (Take, Route, Fr equency, Duration) Notes Start Date End Date Status Omeprazole 20 MG 1 capsule Orally Onc e a day for 30 days 06/21/2024 Active Encounters Encounter Location Date Provider Diagnosis [facility] [address] [place] [id number] 08/23/2024 Yasmany Ortega Jr Epigastric pain R10.13 Assessments Encounter Date Diagnosis (ICD Code) Assessment Notes Treatment Notes Treatment Clinical Notes Section Notes 08/23/2024 Epigastric pain (ICD-10 - R10.13) Plan Of Treatment Medication Medication Name Sig Start Date Stop Date Notes Omeprazole 20 MG 1 capsule Orally Once a day for 30 days 0 06/21/2024 Progress Notes * STACIE HAMTERESAOB:1955 ( 69 yo M)Acc No.[id number]:08/23/2024 Patient:?TONYA HAM :1955???Age:69 Y???Sex:Male Address:[address] [place] [address] [address] , [place] [address] * Refills? Refill Omeprazole Capsule Delayed Release, 20 MG, Orally, 30, 1 capsule, Once a day, 30 days, Refills=6 * true * Date:? Generated for Fredi story/Lou/Giovannyitting on:?01/18/2025 12:37 PM EST
--- OUTSIDE RECORDS SUMMARY | 2025-01-18 12:38 | XMS_ITS ---
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 Yes How often did you have a dri nk containing alcohol in the past year? 2 to 3 times a week (3 points) How many drinks did you have on a typical day when you were drinking in the past year? 1 or 2 drinks (0 point) How often did you have 6 or more drinks on one occasion in the past year? Never (0 point) Points 3 Interpretation Negative Section Notes: occasional beer Problems Problem Type SNOMED Code ICD Code Onset Dates Problem Status W/U Status Risk Notes Problem [id number] Gastroesophageal reflux disease, unspecified whether esophagitis present (K21.9) Active confirmed Problem 51040597 Gastric intestin al metaplasia (K31.A0) Active confirmed Vital Signs Blood pressure systolic 00 mm Hg 11/29/19 25 Blood pressure diastolic 00 mm Hg 025 Height 5 ft 7.5 in in 11/29/2024 Weight 203 lbs 11/29/2024 BMI 31.32 kg/m2 11/29/2024 Encounters Encounter Location Date Provider Diagnosis [facility] [address] [place] [address] 11/29/2024 Yasmany Ortega Jr Gastroesophageal reflux disease, unspecified whether esophagitis present K21.9 ; Gastric intestinal metaplasia K31.A0 and Colon cancer screening Z12.11 Assessments Encounter Date Diagnosis (ICD Code) Assessment Notes Treatment Notes Treatment Clinical Notes Section Notes 11/29/2024 Gastroesophageal reflux disease, unspecified whether esophagitis present (ICD-10 - K21.9) Gastroesophageal reflux disease material was printed We discussed gastroesophageal reflux disease and gastric intestinal metaplasia today. He will have followup endoscopy but prefers to defer this until November next year. We discussed diet, lifestyle modifications, and weight management regarding the treatment of reflux. She will continue dietary measures. He can use simethicone as needed for gas. Followup will be in 12 months. He is up-to-date on colorectal cancer screening. 11/29/2024 Gastric intestinal metaplasia (ICD-10 - K31.A0) Upper endoscopy to be done in November of 2025. We discussed gastroesophageal reflux disease and gastric intestinal metaplasia today. He will have followup endoscopy but prefers to defer this until November of next year. We discussed diet, lifestyle modifications, and weight management regarding the treatment of reflux. She will continue dietary measures. He can use simethicone as needed for gas. Followup will be in 12 months. He is up-to-date on colorectal cancer screening. 11/29/2024 Colon cancer screening (ICD-10 - Z12.11) We discussed gastroesophageal reflux disease and gastric intestinal metaplasia today. He will have followup endoscopy but prefers to defer this until November next year. We discussed diet, lifestyle modifications, and weight management regarding the treatment of reflux. She will continue dietary measures. He can use simethicone as needed for gas. Followup will be in 12 months. He is up-to-date on colorectal cancer screening. Plan Of Treatment Treatment Notes Assessment Notes Gastroesophageal reflux dise ase, unspecified whether esophagitis present Gastroesophageal reflux disease material was printed Gastric intestinal metaplasia Upper endo scopy to be done in November of 2025. Next Appt Details Follow Up: 1 Year, Reason: Progress Notes * BERTRAM HAMOB:1955 ( 69 yo M)Acc No.[id number]:11/29/2024 Progress Notes Patient:?TONYA HAM Provider:?Yasmany Ortega MD :1955???Age:69 Y???Sex:Male Leo e:11/29/2024 Address:[address] [place], [place] [id number] Pcp:Zack Allison MD Subjective: * Chief Complaints: * ???1. Patient presents today for acid reflux. * HPI: ???New symptom(s):? The patient is a pleasant 69-year-old man seen today in followup. He was last seen in June for epigastric pain and colon cancer screening. Colonoscopy in August was normal. Upper endoscopy showed focal intestinal metaplasia and no Hines's. We reviewed this today. ?Since we saw him last, he stopped taking omeprazole. He had covid 19 infection 1-1/2 months ago, and prior to that had back pain. He does get occasional stomach pain which she attributes to gas. This was relieved by burping. He thinks there may be a relationship with caffeine and is cutting down to one coffee per day. He has no dysphagia, hematemesis, or melena. Weight and appetite have been stable. * ROS:?General/Constitutional:?Change in appetite?denies.?Fatigue?denies.?ENT:?Patient denies?difficulty swallowing.?Respiratory:?Patient denies?shortness of breath.?Cardiovascular:?Patient denies?chest pain.?Gastrointestinal:?Comments?See HPI for details.?Genitourinary:?Difficulty urinating?denies.?Incontinence?denies.?Musculoskeletal:?Patient denies?muscle aches.?Skin:?Patient denies?pruritis.?Neurologic:?Patient denies?low back pain.?Psychiatric:?Patient denies?mental or physical abuse.? * Medical History:?Hyperlipide jaja, Elevated blood sugar, Increased body mass index, Right inguinal hernia, EGD 09/06, focal intestinal metaplasia on gastric biopsies, no dysplasia, Colonoscopy 09/06, normal, ten-year followup, optional based on age. * Surgical History:?Cataract r epairs 2021, Knee surgery . * Family History:?Father: dece ased, diagnosed with HTN (hypertension), Heart disease.?Mother: , diagnosed with HTN (hypertension).? no known hx of colon ca,polyps or liver ds. * Social History:?Tobacco Use:?Tobacco Use/Smoking?Patient is a?nonsmoker.?Drugs/Alcohol:?Alcohol Screen?Did you have a drink containing alcohol in the past year??Yes,?How often did you have a drink containing alcohol in the past year??2 to 3 times a week (3 points),?How many drinks did you have on a typical day when you were drinking in the past year??1 or 2 drinks (0 point),?How often did you have 6 or more drinks on one occasion in the past year??Never (0 point),?Points?3,?Interpretation?Negative.?Miscellaneous:?Marital status: single. Occupation: retired. ???occasional beer. * Medications:?Taking Vitamin D3 , Discontinued MiraLax (colon prep) 17 GM/SCOOP Powder mixed with Gatorade or Crystal Light Orally begin at 5:00 p.m. the day before the procedure, Discontinued Omeprazole 20 MG Capsule Delayed Release 1 capsule Orally Once a day, Notes: stopped 10/2024, Medication List reviewed and reconciled with the patient * Allergies:?N.K.D.A. Objective: * Vitals:?Wt: 203 lbs, Ht: 5 f t 7.5 in, BMI:31.32 Index, BP: 00/00 mm Hg. * Examination: ???General Examination: ?GENERAL APPEARANCE:?in no acute distress.?HEAD:?normocephalic.?EYES:?sclera non-icteric.?ORAL CAVITY:?mucosa moist.?NECK/THYROID:?no lymphadenopathy.?SKIN:?anicteric.?HEART:?S1, S2 normal, no murmurs.?LUNGS:?clear to auscultation bilaterally.?CHEST:?normal shape and expansion.?ABDOMEN:?soft, nontender, nondistended, bowel sounds present, no organomegaly .?EXTREMITIES:?no clubbing, cyanosis, or edema.?PSYCH:?cognitive function intact.? Assessment: * Assessment: 1.?Gastroesophageal reflux d isease, unspecified whether esophagitis present - K21.9 (Primary)?2.?Gastric intestinal metaplasia - K31.A0?3.?Colon cancer screening - Z12.11? We discussed gastroesophagea l reflux disease and gastric intestinal metaplasia today. He will have followup endoscopy but prefers to defer this until November of next year. We discussed diet, lifestyle modifications, and weight management regarding the treatment of reflux. She will continue dietary measures. He can use simethicone as needed for gas. Followup will be in 12 months. He is up-to-date on colorectal cancer screening. Plan: * Treatment: 2.?Gastric intestinal metapl migue? Notes: Upper endoscopy to be done in November of 2025.?? * Procedure Codes:?3017F COLOR ECTAL CA SCREEN DOC REV, G9903 Pt scrn tbco id as non user, G8950 PREHTN/HTN BP DOC INDCD F/U DOC * Preventive Medicine:? ??Counseling:?Care goal follow-up plan:?Above Normal BMI Follow-up?Giving encouragement to exercise,?BMI management provided?Yes.? ??Screenings:?Fall Risk Screening?Fall Risk Assessment:?No falls in the past year,?Screening:?No falls in the past year,?Assessment:?Not performed, no reason specified,?Plan of Care:?Not documented, no reason specified.? * Follow Up:?1 Year * * Sign off status: Completed true * Provider:?Yasmany Ortega MD Date:?0 11/29/2024 Generated for Fredi story/Lou/Hector on:?01/18/2025 12:37 PM EST History and Physical Notes * HPI (History of Present Illness) Category Sub-Category Detail Notes Category Not es New symptom(s) The patient is a pleasant 69-year-old man seen today in followup. He was last seen in June for epigastric pain and colon cancer screening. Colonoscopy in August was normal. Upper endoscopy showed focal intestinal metaplasia and no Hines's. We reviewed this today. Since we saw him last, he stopped taking omeprazole. He had covid 19 infection 1-1/2 months ago, and prior to that had back pain. He does get occasional stomach pain which she attributes to gas. This was relieved by burping. He thinks there may be a relationship with caffeine and is cutting down to one coffee per day. He has no dysphagia, hematemesis, or melena. Weight and appetite have been stable. Examination Category Sub-Category Detail Notes Category Not es General Examination GENERAL APPEARANCE: in no acute di stress HEAD: normocephalic EYES: sclera non-icteric NECK/THYROID: no lymphadenopathy HEART: S1, S2 normal, no mu rmurs CHEST: normal shape and exp ansion LUNGS: clear to auscultatio n bilaterally ABDOMEN: soft, nontender, non distended, bowel sounds present, no organomegaly SKIN: anicteric EXTREMITIES: no clubbing, cyanosi s, or edema PSYCH: cognitive function i ntact ORAL CAVITY: mucosa moist
--- OUTSIDE RECORDS SUMMARY | 2025-01-18 12:38 | XMS_ITS | Patient Health Record ---
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 Name Role Phone Zack Allison MD Primary Care Provider Yasmany Ott Jr Unavailable Allergies No Known Allergies Results Component Value Reference Range Notes Pathology Reviewed date:08/23/2024 11:31:15 AM Interpretation: Performing Lab:[facility], [address] [place] [id number] Notes/Report: Name: Mihai Mathew e/Sex: 69/M : 1955 Unit#: [id number] Attend Dr: Yasmany Ortega MD Re08/17/24 Status : [facility] Location: [facility] Disch: SPEC : [id number] REC STATUS: BRONSON WEBBER NUM: [id number] SANDOR: 08/17/[address] [facility] DR: Yasmany Ortega MD ENTERED: 08/17/24 SP TYPE: Surgical OTHR DR: Zack Allison MD ORDERED: HE Stain/6, Gross Micro L4/2, IHC, Special st. 2, H. pylori, AB/PAS Addendum Addendum 1 Entered: 08/23/24 Immunostain for H. p ylori on A is negative. Additional level with AB/PAS on B is negative for intestinal metap lasia. Controls stain appropriately. Addendum Signed ____ __(signature on file) Breana Saad 08/23/24955 Diagnosis A. Gastric antrum, b iopsy: Gastric antral mucosa with mild reactive changes, minimal chronic inactive gas tritis, and focal intestinal metaplasia; negative for dysplasia. B. Esophagogastric j unction, biopsy: Squamocolumnar mucosa with mild chronic inflammation; no int estinal metaplasia seen on initial levels; negative for dysplasia. Comment: (A): Immunostain for H. pylori pending; addendum to follow. (B): Additional leve l with AB/PAS stain pending; addendum to follow. Clinical History Pre-Op Dx: Epigastric pain Post-Op Dx: GERD Microscopic Description Microscopic sections reviewed. Material Received A. Bx's antrum B. Bx's EG junction CONTINUED ON NEXT PAGE Name: Mihai Mathew e/Sex: 69/M : 1955 Unit#: [id number] Attend Dr: Yasmany Ortega MD Re08/17/24 Status : [facility] Location: [facility] Disch: SPEC : [id number] RECD : 08/17/24 STATUS: BRONSON WEBBER NUM: [id number] SANDOR: 08/17/[address] [facility] DR: Yasmany Ortega MD ENTERED: 08/17/24-07 21 SP TYPE: Surgical OTHR DR: Zack Allison MD ORDERED: HE Stain/6, Gross Micro L4/2, IHC, Special st. 2, H. pylori, AB/PAS Gross Description A. Received in forma tabatha are 3 rosa 1-3 mm soft tissue fragments, totally submitted in cassette A1. Please note, that the smallest fragment may not survive processing. B. Received in forma tabatha are 4 rosa 2-4 mm soft tissue fragments, totally submitted in cassette B1. (OMI) In formalin time: im mediate; total time in formalin: 16-20 hours. Special studies orde red and performed: Immunostain for H. pylori on A1; AB/PAS stains on B1. Copies To: Yasmany Ortega MD [facility] [address] [place], [place] [id number] Zack Allison MD [facility],[address] [place], [place] [phone] Signed (si gnature on file) Breana Saad 08/20/24 1422 END OF REPORT Reason For Referral No Information Medications Medication SIG (Take, Route, Frequency, Duration) [...] 3 Interpretation Negative Section Notes: occasional beer occasional beer Problems Problem Type SNOMED Code ICD Code Onset Dates Problem Status W/U Status Risk Notes Problem 009613752 Colon cancer screening (Z12.11) Active confirmed Problem 69994359 Epigastric pain (R10.13) Active confirmed Problem 746509597 Gastroesophageal reflux disease, unspecified whether esophagitis present (K21.9) Active confirmed Problem 25244763 Gastric intestin al metaplasia (K31.A0) Active confirmed Vital Signs Blood pressure diastolic 00 mm Hg 11/29/2024 Height 5 ft 7.5 in in 11/29/2024 Blood pressure systolic 00 mm Hg 11/29/2024 Weight 203 lbs 11/29/2024 BMI 31.32 kg/m2 11/29/2024 Encounters Encounter Location Date Provider Diagnosis [facility] [place] [address] [place] [phone] 08/17/2024 Yasmany Ortega Jr Colon cancer screening Z12.11 and Gastro-esophageal reflux disease without esophagitis K21.9 [facility] [address] [place] [phone] 06/21/2024 Yasmany Ortega Jr Epigastric pain R10.13 and Colon cancer screening Z12.11 [facility] [address] [place] [phone] 11/29/2024 Yasmany Ortega Jr Gastroesophageal reflux disease, unspecified whether esophagitis present K21.9 ; Gastric intestinal metaplasia K31.A0 and Colon cancer screening Z12.11 [facility] [address] [address] 03/01/2024 Yasmany Ortega Jr [facility] [address] [place] [phone] 07/24/2024 Yasmany Ortega Jr [facility] [address] [place] [phone] 08/17/2024 Yasmany Ortega Jr [facility] [address] [place] [phone] 08/23/2024 Yasmany Ortega Jr Epigastric pain R10.13 Assessments Encounter Date Diagnosis (ICD Code) Assessment Notes Treatment Notes Treatment Clinical Notes Section Notes 08/17/2024 Colon cancer screening (ICD-10 - Z12.11) 08/17/2024 Gastro-esophageal reflux disease without esophagitis (ICD-10 - K21.9) 06/21/2024 Colon cancer screening (ICD-10 - Z12.11) We discussed the causes of epigastric pain today including gastritis, peptic ulcer disease, pancreatitis, malignancy, and erosive esophagitis. We recommended a trial of omeprazole 20 mg daily. Further evaluation with upper endoscopy will be arranged. He is also due for colonoscopy and this will be scheduled at the same time. He is aware risks and benefits of both procedures and agrees to proceed. Followup will be pending the results of the endoscopy. 06/21/2024 Epigastric pain (ICD-10 - R10.13) We discussed t he causes of epigastric pain today including gastritis, peptic ulcer disease, pancreatitis, malignancy, and erosive esophagitis. We recommended a trial of omeprazole 20 mg daily. Further evaluation with upper endoscopy will be arranged. He is also due for colonoscopy and this will be scheduled at the same time. He is aware risks and benefits of both procedures and agrees to proceed. Followup will be pending the results of the endoscopy. 11/29/2024 Gastroesophageal reflux disease, unspecified whether esophagitis [...] He is up-to-date on colorectal cancer screening. 08/23/2024 Epigastric pain (ICD-10 - R10.13) 11/29/2024 Colon cancer screening (ICD-10 - Z12.11) [...] on colorectal cancer screening. Plan Of Treatment Future Test Test Name Order Date UPPER GI ENDOSCOPY 06/21/2024 COLONOSCOPY 06/21/2024 Insurance Providers Payer Name Payer Address Payer Phone Subscriber Number Group Number Insured Name Patient Relationship to Insured Coverage Start Date Coverage End Date [facility] [address] [place] [phone] [id number] MIHAI MATHEW Self - patient is the insured Medical (General) History Medical History History ICD Code Hyperlipidemia Elevated blood sugar Increased body mass index Right inguinal hernia EGD 09/06, focal intestinal metaplasia o n gastric biopsies, no dysplasia Colonoscopy 09/06, normal, ten-year foll owup, optional based on age Surgical History Surgery Date(Month/Year) Cataract repairs 2021 Knee surgery
--- OUTSIDE RECORDS SUMMARY | 2025-01-18 12:38 | XMS_ITS ---
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 Generated for Lindsayi porsha/Lou/eTransmitting on:?01/18/2025 12:37 PM EST
== END 2025-01-18 11:54 | disposition home or self-care (01) ==
PROVIDERS: PCP Internal Medicine; Visit Provider Internal Medicine
DX: Z00.00 Encounter for general adult medical examination without abnormal findings (principal); E78.00 Pure hypercholesterolemia, unspecified; E66.9 Obesity, unspecified; Z68.31 Body mass index [BMI] 31.0-31.9, adult; R73.02 Impaired glucose tolerance (oral); K21.9 Gastro-esophageal reflux disease without esophagitis; K40.90 Unilateral inguinal hernia, without obstruction or gangrene, not specified as recurrent

== ENCOUNTER → 2025-01-18 10:56 | Outpatient (BNVA) | payer MEDICARE, SELFPAY | PROVIDERS: PCP Internal Medicine; Visit Provider Internal Medicine | DX: Z00.00 Encounter for general adult medical examination without abnormal findings (principal); E66.9 Obesity, unspecified; E78.00 Pure hypercholesterolemia, unspecified; R73.02 Impaired glucose tolerance (oral); K21.9 Gastro-esophageal reflux disease without esophagitis; K40.90 Unilateral inguinal hernia, without obstruction or gangrene, not specified as recurrent | CPT/HCPCS: 83036; 99397 ==

== ENCOUNTER 2025-01-23 07:22 | Outpatient (REF) | payer MEDICARE, SELFPAY ==
[2025-01-23 07:37] LABS: MANUAL DIFF FLAG NO
[2025-01-23 07:58] LABS: Basophils Absolute Auto 0.1 X10*3/uL (0.0-0.2); Eosinophils Absolute Auto 0.2 X10*3/uL (0.0-0.4); Eosinophils Percent Auto 2.2 % (0-4); Hematocrit 48.1 % (42.0-52.0); Hemoglobin 16.5 g/dl (14.0-18.0); Imm Gran Abs Auto 0.02 X10*3/uL (0.00-0.03); Imm Gran Pct Auto 0.3 % (0.0-0.4); Lymphocytes Absolute Auto 1.4 X10*3/uL (1.2-4.9); Lymphocytes Percent Auto 20.2 % (20-40); Mean Corpuscular HGB Conc 34.3 g/dl (31.0-36.0); Mean Corpuscular Volume 90.4 fL (80.0-98.0); Mean Platelet Volume 9.6 fL (9.4-12.4); Monocytes Absolute Auto 0.6 X10*3/uL (0.1-1.2); Neutrophils Absolute Auto 4.9 x10*3/uL (2.0-8.3); Neutrophils Percent Auto 68.3 % (45-73); Platelet Count 302 X10*3/uL (160-400); Red Blood Count 5.32 X10*6/uL (4.60-5.80); Red Cell Distribution Width 12.7 % (11.0-16.0); White Blood Count 7.1 X10*3/uL (4.8-10.8)
[2025-01-23 08:06] LABS: Appearance Urine Clear; Color Urine Yellow; Glucose Urine UA Negative (Negative); Leukocyte Esterase Urine Negative (Negative); Nitrite Urine Negative (Negative); PH 5.5 (5.0-9.0); UMIC TRIGGER UACC YES; Urine Blood Trace (Negative); Urine Ketones Negative (Negative); Urine Protein Negative (Neg-Trace)
[2025-01-23 08:11] LABS: Bacteria Urine None Seen (None Seen); Hyaline Casts Urine 0-2 /LPF (0-2); RBC Urine 0-2 /HPF (0-2); Squamous Epithelial Cell Urine 0-2 /HPF (0-2); WBC Urine 0-5 /HPF (0-5)
[2025-01-23 08:44] LABS: Alanine Aminotransferase 27 U/L (0-40); Albumin Level 4.1 g/dL (3.5-5.0); Alkaline Phosphatase 73 U/L (39-117); Anion Gap 8 (12-20); Aspartate Amino Transferase 22 U/L (5-37); Bilirubin Total 0.8 mg/dL (0.0-1.0); Blood Urea Nitrogen 12 mg/dL (9-16); Calcium 9.1 mg/dL (8.4-10.2); Carbon Dioxide 26 mmol/L (22-29); Chloride 111 mmol/L (96-108); Cholesterol 182 mg/dL (<200); Estimated Glomerular Filt Rate > 60; Glucose Random 94 mg/dL (60-115); HDL Cholesterol 32 mg/dL (>40); LDL Cholesterol Calculated 125 mg/dL (<100); Potassium 4.2 mmol/L (3.3-5.1); Sodium 141 mmol/L (135-145); Total Protein 7.1 g/dL (6.5-8.0); Triglycerides 127 mg/dL (<150)
[2025-01-23 08:59] LABS: Free T4 (Free Thyroxine) 0.93 ng/dL (0.71-1.85); Thyroid Stimulating Hormone 2.07 uIU/mL (0.32-4.0)
[2025-01-23 09:11] LABS: Folate 10.9 ng/mL (> or = 4.0); Vitamin B12 351 pg/mL (200-900)
[2025-01-24 09:18] LABS: Rubeola IgG (Measles) >300.00 AU/mL
[2025-01-24 18:18] LABS: Rubella IgG Antibody 8.85 Index
== END 2025-01-23 07:23 | disposition home or self-care (01) ==
LOC: HO.LAB 07:22
PROVIDERS: PCP Internal Medicine; Visit Provider Internal Medicine
DX: E78.00 Pure hypercholesterolemia, unspecified (principal); K40.90 Unilateral inguinal hernia, without obstruction or gangrene, not specified as recurrent; Z02.0 Encounter for examination for admission to educational institution; Z12.5 Encounter for screening for malignant neoplasm of prostate
CPT/HCPCS: 36415; 80053; 80061; 81001; 81003; 82607; 82746; 84153; 84439; 84443; 85025; 86735; 86762; 86765

== ENCOUNTER 2025-10-19 09:06 | Outpatient (AMB) | payer MEDICARE, SELFPAY ==
[2025-10-19 09:11] VITALS: BP 130/80; PULSE 74; TEMP 36.7; O2SAT 98; BMI 31.2
--- NOTE | 2025-10-19 09:11 | AM.OFFWIN_ITS ---
Intake Vital Signs 10/19/25 09:11 Height 5 ft 8 in Weight 205 lb BMI 31.2 BP 130/80 Blood Pressure Location Rt brachial Position Sitting Pulse 74 Pulse Source Pulse Oximeter Temp 98.0 F Temp Source Oral Pulse Oximetry (%) 98 Oxygen Delivery Method Room Air Intake Visit Reasons: EP Reoccuring headaches, lower back pain Patient Tobacco Use Status: Former Tobacco user Allergies latex Allergy (Intermediate, Verified 10/19/25 09:12) Rash Penicillins Adverse Reaction (Intermediate, Verified 10/19/25 09:12) Rash Do you need a note to return to daycare/school/sports/work: No HPI HPI Comments History of Present Illness Details This is a 70-year-old male who presented to the walk-in clinic complaining of recurrent headaches and right-sided low back pain. Patient states he has been having daily headaches for the past 2 or 3 months. He states these headaches happen everyday and he sometimes wake up with them but they sometimes come on later during the day. He states the headache is located at the frontal aspect of his head and does not radiate. He denies any associated neurological symptoms such as visual disturbances, facial asymmetry, slurred speech, or numbness/weakness/paresthesias of his extremities. He denies any thunderclap headaches. He denies any fevers or chills. He does report some mild neck soreness and tightness associated with the headaches. He denies any mental status changes or seizures. He denies any head trauma prior to his symptom onset. He has been using acetaminophen with mild relief. Patient also reports right-sided low back pain for the past 6 months. He denies any trauma or injury prior to his symptom onset. He denies any numbness/weakness/paresthesias of his lower extremities. He denies any saddle anesthesias. He denies any urinary retention or urinary incontinence and denies any fecal retention or fecal incontinence. He denies any urinary symptoms such as dysuria, hematuria, urinary frequency, or urinary urgency. FOR[facility]LY [facility] Medical History History of inguinal hernia Elevated blood sugar Hyperlipidemia Allergic dermatitis due to poison tram COVID-19 vaccine series completed Patient denies medical problems Cataract Encounter to establish care (~11/16/21) Ingrowing nail with infection Surgical History Hx of tonsillectomy History of cataract surgery H/O colonoscopy History of knee surgery Family History Father FH: CABG (coronary artery bypass surgery) Social History (Updated 01/18/25 @ 11:24 by Zack Allison MD) Household Members Other:: son Housing: [facility] Are you a primary critical care physician assistant to a significant other at home: No Do you presently have visiting nurse or other home services: No Alcohol intake: current Alcohol intake frequency: 0-2 drinks per day Alcohol type: beer and wine Comment: 3x a week1 drink Patient Tobacco Use Status: Former Tobacco user Tobacco use type: Cigarette Years Smoked: 1979 quit e-Cigarette/Vaping Use: Never Used Second Hand Smoke Exposure: No service: No Current occupational status: employed 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 Cognitive needs: No Hearing needs: No Vision needs: Yes (Glasses) Review of Systems Const All systems reviewed & are unremarkable except as noted in HPI and below Reports no additional complaints Eyes Reports no additional complaints ENT Reports no additional complaints Card Reports no additional complaints Resp Reports no additional complaints GI Reports no additional complaints Reports no additional complaints Musc Reports no additional complaints Skin/Breast Reports system reviewed and no additional complaints, except as documented Neuro Reports no additional complaints Psych Reports no additional complaints Endo Reports no additional complaints Devin/Lymph Reports no additional complaints Aller/Immun Reports no additional complaints Physical Exam Exam Exam: Vital signs reviewed. Constitutional: Non-toxic appearing. No acute distress. Well-developed and well-nourished. HEENT: Normocephalic and atraumatic. PERRL/EOMI. Tympanic membranes without erythema, edema, or bulging bilaterally. External auditory canals without erythema or edema bilaterally. Moist mucous membranes. No pharyngeal erythema or exudates. Skin: Warm and dry. No rashes or lesions noted. Neck: Full and painless range of motion. No cervical lymphadenopathy. Cardio: Regular rate and rhythm. No murmurs, gallops, or rubs. No lower extremity edema. No JVD. Pulmonary: No respiratory distress. No accessory muscle usage. Clear to auscultation bilaterally without wheezing, crackles, or rhonchi. Gastrointestinal: Soft, non-tender, and non-distended in all 4 quadrants. Normoactive bowel sounds in all 4 quadrants. Genitourinary: No CVA tenderness. Musculoskeletal: Normal range of motion in joints throughout the body. No deformity or other signs of injury. Neuro: Alert and oriented x4. Cranial nerves 2-12 grossly intact. No focal deficits appreciated. Psych: Normal mood and affect. Vital Signs: Last Vital Signs Temp 98.0 F 10/19/25 09:11 Pulse 74 10/19/25 09:11 BP 130/80 10/19/25 09:11 Pulse Ox 98 10/19/25 09:11 Oxygen Delivery Method Room Air 10/19/25 09:11 BMI result Body Mass Index 31.2 Assessment & Plan Assessment & Plan (1) Tension type headache: Code(s): G44.209 - Tension-type headache, unspecified, not intractable Qualifiers: Headache chronicity pattern: episodic headache Intractability: not intractable Qualified Code(s): G44.219 - Episodic tension-type headache, not intractable Plan 70-year-old male who presented to the walk-in clinic complaining of recurrent headaches and right-sided low back pain. Patient's symptoms appear to be musculoskeletal in nature and likely related to a tension headache. Patient was given a prescription for PO cyclobenzaprine 5 mg 3 times daily as needed for muscle spasms. He was also recommended to trial [id number] Excedrin for his headaches. I also recommended heating pad application as well as lidocaine patches to the back and neck to help with muscle spasm. Patient was advised to proceed directly to the emergency room if he were to develop any neurological or but flag symptoms as detailed above. Patient verbalizes understanding and he is in agreement with the plan. l Medications: New cyclobenzaprine 5 mg PO TID PRN 10 tabs 0RF muscle spasm lidocaine 5% leave on most painful area for up to 12 hrs 2 patches topical DAILY 30 ea 0RF Coding Level of Care Code Est Pt Level 4 (07660) Diagnoses Episodic tension-type headache, not intractable G44.219 Headache chronicity pattern: episodic headache Intractability: not intractable
== END 2025-10-19 09:59 | disposition home or self-care (01) ==
PROVIDERS: PCP Internal Medicine; Visit Provider Physician Assistant Medical
DX: Z13.9 Encounter for screening, unspecified (principal); G44.219 Episodic tension-type headache, not intractable

== ENCOUNTER → 2025-10-19 09:06 | Outpatient (BNVA) | payer MEDICARE, SELFPAY | PROVIDERS: PCP Internal Medicine; Visit Provider Physician Assistant Medical | DX: G44.219 Episodic tension-type headache, not intractable (principal) | CPT/HCPCS: 81003; 99212 ==